=== PATIENT | male | born 1980 | race Caucasian/White ===

== ENCOUNTER 2024-05-22 10:32 | Outpatient (CLI) | payer MEDICAID | END 2024-05-22 23:59 | disposition home or self-care (01) | LOC: RAD 10:32 | PROVIDERS: ATTEND Student in an Organized Health Care Education/Training Program | DX: N43.3 Hydrocele, unspecified (principal); N50.811 Right testicular pain; R36.1 Hematospermia | CPT/HCPCS: 76857; 76870; 93976 ==